=== PATIENT | female | born 1950 | race Caucasian/White ===

== ENCOUNTER 2016-07-18 12:06 | Outpatient (CLI) | payer OTHER ==
--- NOTE | 2016-07-18 13:50 | DIAGNOSTIC IMAGING REPORT ---
PROCEDURE: MR LOWER EXT JOINT WO CONT-LT INDICATION: ACUTE MENISCUS TEAR OF LEFT KNEE TECHNIQUE: PD and FAT-SAT PD sagittal and coronal images. FAT-SAT PD axial images. High-resolution T2 sagittal images of the cruciate ligaments. (Total of 6 sequences). COMPARISON: Left knee x-ray 10/17/2015. FINDINGS: Small spurs of the medial and patellofemoral compartments. Normal cruciate and collateral ligaments. Flap tear of the medial meniscus posterior horn extending to the body of the medial meniscus. Mild chondromalacia. Grade 1 degeneration of the lateral meniscus. Quadriceps tendon not imaged on the sagittal sequence. Normal patellar tendon. Small effusion. Mild chondromalacia patella and lateral subluxation. Small popliteal cyst. IMPRESSION: 1. Mild degenerative changes of the medial and patellofemoral compartments 2. Flap tear of the medial meniscus posterior horn extending to the body of the meniscus, associated mild chondromalacia 3. Mild lateral subluxation of the patella and chondromalacia 4. Small effusion 5. Small popliteal cyst
== END 2016-07-18 23:00 ==
LOC: MRI SRH 12:06
DX: M23.222 Derangement of posterior horn of medial meniscus due to old tear or injury, left knee (principal); M22.42 Chondromalacia patellae, left knee; M71.22 Synovial cyst of popliteal space [Baker], left knee